=== PATIENT | female | born 1985 | race Caucasian/White ===

== ENCOUNTER 2017-04-18 15:29 | Emergency (ER) | payer MEDICAID ==
[2017-04-18 15:36] VITALS: BMI 25.6
[2017-04-18 15:40] VITALS: TEMP 98.8; O2SAT 100
[2017-04-18] MEDS ORDERED: Sodium Chloride 0.9% 1,000 ML IV STA (16:00)
--- NOTE | 2017-04-18 16:12 | ED PDOC ---
Arrival/HPI - General Chief Complaint: Dizziness/Lightheaded Time Seen by Provider: 04/18/17 15:35 Historian: Patient - History of Present Illness Narrative History of Present Illness (Text): 04/18/17 16:05 31yo female with no PMhx present with complaint of dizziness associated with nausea. The who was by the bedside notes that she had similar episode yesterday and then today, while in [place]. states she usually get these symptoms after her monthly periods. States her period usually last for 5days and heavy. Her last LMP was 2weeks ago. She described dizziness as "light headedness". Also reports headache. the states she usually wake up with headache every morning. States the headache usually resolves. states she had a cup of coffee today, but worried about what is causing her dizziness and have a headache as a result. she otherwise denies focal weakness, aphasia, visual changes, spinning sensation, dysathria, chest pain, SOB, diaphoresis, abdominal pain, recent travel, LE edema. Past Medical History - Provider Review Nursing Documentation Reviewed: Yes - Tetanus Immunization Tetanus Immunization: Unknown - Past Medical History Past Medical History: No Previous - Psychiatric Hx Depression: No Hx Emotional Abuse: No Hx Physical Abuse: No Hx Substance Use: No - Past Surgical History Past Surgical History: No Previous - Surgical History Hx Section: Yes - Anesthesia Hx Anesthesia: No - Suicidal Assessment Feels Threatened In Home Enviroment: No Family/Social History - Physician Review Nursing Documentation Reviewed: Yes Family/Social History: Unknown Family HX Smoking Status: Never Smoked Hx Alcohol Use: No Hx Substance Use: No Hx Substance Use Treatment: No Allergies/Home Meds Allergies/Adverse Reactions: Allergies krys Allergy (Intermediate, Uncoded 04/18/17 15:36) RASH strawberries Allergy (Intermediate, Uncoded 04/18/17 15:36) RASH Home Medications: Home Meds Medication Instructions Recorded Confirmed No Known Home Med 04/18/17 04/18/17 Review of Systems - Physician Review All systems were reviewed & negative as marked: Yes - Review of Systems Constitutional: Normal Eyes: Normal ENT: Normal Respiratory: Normal Cardiovascular: Normal Gastrointestinal: Normal Genitourinary Female: Normal Musculoskeletal: Normal Skin: Normal Neurological: Headache, Dizziness. absent: Focal Weakness, Gait Changes, Speech Changes, Facial Droop Endocrine: Normal Hemo/Lymphatic: Normal Psychiatric: Normal Physical Exam Vital Signs Reviewed: Yes Vital Signs Temp Pulse Resp BP Pulse Ox 04/18/17 16:52 71 18 115/75 100 04/18/17 15:39 98.8 F 76 17 117/79 100 Temperature: Afebrile Blood Pressure: Normal Pulse: Regular Respiratory Rate: Normal Appearance: Positive for: Well-Appearing, Non-Toxic, Comfortable Pain Distress: None Mental Status: Positive for: Alert and Oriented X 3 Finger Stick Blood Glucose: 113 - Systems Exam Head: Present: Atraumatic, Normocephalic Pupils: Present: PERRL Extroacular Muscles: Present: EOMI Conjunctiva: Present: Normal Mouth: Present: Moist Mucous Membranes Neck: Present: Normal Range of Motion Respiratory/Chest: Present: Clear to Auscultation, Good Air Exchange. No: Respiratory Distress, Accessory Muscle Use Cardiovascular: Present: Regular Rate and Rhythm, Normal S1, S2. No: Murmurs Abdomen: Present: Normal Bowel Sounds. No: Tenderness, Distention, Peritoneal Signs, Rebound, Guarding, McBurney's Point Tender, Rovsing's Sign Present Back: Present: Normal Inspection Upper Extremity: Present: Normal Inspection. No: Cyanosis, Edema Lower Extremity: Present: Normal Inspection. No: Edema Neurological: Present: GCS=15, CN II-XII Intact, Speech Normal, Motor Func Grossly Intact, Normal Sensory Function, Normal Cerebellar Funct, Norm Deep Tendon Reflexes, Gait Normal, Memory Normal, Normal 2Pt Descrimination, Other ( No focal neurological deficit) Skin: Present: Warm, Dry, Normal Color. No: Rashes Psychiatric: Present: Alert, Oriented x 3, Normal Insight, Normal Concentration Medical Decision Making ED Course and Treatment: 04/18/17 16:53 Pt was neurological intact and hemodynamically stable in ED. She was PERC negative. All lab was WNL. head CT was negative. Pt's symptom might be vasovagal Vs. viral syndrome. She denied elements of vertigo in ED. She was not orthostatic. All result was DW the pt. She is stable to be DC home and advised to f/u with a Neurology for outpt workup. - Lab Interpretations Lab Results: 04/18/17 16:30 04/18/17 16:30 Lab Results 04/18/17 16:30: PT 10.6, INR 0.98, APTT 27.8 04/18/17 16:30: Sodium 138, Potassium 3.9, Chloride 103, Carbon Dioxide 27, Anion Gap 12, BUN 11, Creatinine 0.7, Est GFR ( Amer) > 60, Est GFR (Non- Af Amer) > 60, Random Glucose 77, Calcium 9.2, Total Bilirubin 0.6, AST 24, ALT 26, Alkaline Phosphatase 58, Lactate Dehydrogenase 376, Total Creatine Kinase 72 , Troponin I < 0.01, Total Protein 8.3, Albumin 4.5, Globulin 3.8, Albumin/ Globulin Ratio 1.2 04/18/17 16:30: WBC 5.9 D, RBC 4.34, Hgb 12.0, Hct 35.8 L, MCV 82.5, MCH 27.6, MCHC 33.5, RDW 13.3, Plt Count 284, MPV 9.7, Gran % 54.6, Lymph % (Auto) 34.0, [place] % (Auto) 8.2 H, Eos % (Auto) 2.7, Baso % (Auto) 0.5, Gran # 3.21, Lymph # 2.0, [place]ke # 0.5, Eos # 0.2, Baso # 0.03 04/18/17 16:20: Urine Color Yellow, Urine Appearance Clear, Urine pH 6.0, Ur Specific [place] 1.025, Urine Protein Negative, Urine Glucose (UA) Negative, Urine Ketones Negative, Urine Blood Trace-lysed H, Urine Nitrate Negative, Urine Bilirubin Negative, Urine Urobilinogen 0.2, Ur Leukocyte Esterase Trace H , Urine RBC 0 - 2, Urine WBC 2 - 5, Ur Epithelial Cells 3 - 4, Urine Bacteria Few - RAD Interpretation Radiology Orders: 04/18/17 16:00 HEAD W/O CONTRAST [CT] Stat - Medication Orders Current Medication Orders: Discontinued Medications Acetaminophen (Tylenol 325mg Tab) 650 mg PO STAT STA Stop: 04/18/17 16:01 Last Admin: 04/18/17 16:12 Dose: 650 mg Sodium Chloride (Sodium Chloride 0.9%) 1,000 mls @ 999 mls/hr IV .Q1H1M STA Stop: 04/18/17 17:00 Last Admin: 04/18/17 16:13 Dose: 999 mls/hr Disposition/Present on Arrival - Present on Arrival Any Indicators Present on Arrival: No History of DVT/PE: No History of Uncontrolled Diabetes: No Urinary Catheter: No History of Decub. Ulcer: No History Surgical Site Infection Following: None - Disposition Have Diagnosis and Disposition been Completed?: Yes Diagnosis: Dizziness Disposition: HOME/ ROUTINE Disposition Time: 17:05 Patient Plan: Discharge Patient Problems: Current Active Problems Problem Status Onset Dizziness Acute Condition: STABLE Discharge Instructions (ExitCare): Dizziness (ED) Additional Instructions: Follow up with a Neurologist Return to ED for any new or worsening symptoms Referrals: Andrey Cruz MD [Primary Care Provider] - Follow up with primary Ángel Garcia MD [Staff Provider] - Follow up with primary
[2017-04-18 16:33] LABS: ADD MANUAL DIFF? NO
[2017-04-18 16:36] LABS: URINE BILIRUBIN NEGATIVE (NEGATIVE); URINE BLOOD TRACE-LYSED (NEGATIVE); URINE GLUCOSE (UA) NEGATIVE (NEGATIVE); URINE KETONE NEGATIVE (NEGATIVE); URINE LEUKOCYTE ESTERASE TRACE Leu/uL (NEGATIVE); URINE PROTEIN NEGATIVE mg/dL (<30 mg/dL); URINE UROBILINOGEN 0.2 E.U./dL (<1 E.U./dL)
[2017-04-18 16:38] LABS: BASO # 0.03 K/mm3 (0.0-2.0); BASO % 0.5 % (0.0-3.0); EOS # 0.2 (0.0-0.7); EOS % 2.7 % (1.5-5.0); GRAN # 3.21 (1.4-6.5); GRAN % 54.6 % (50.0-68.0); HEMATOCRIT 35.8 % (36.0-48.0); MEAN CELL VOLUME 82.5 fL (80.0-105.0); MEAN CORPUSCULAR HEMOGLOBIN 27.6 pg (25.0-35.0); MEAN CORPUSCULAR HGB CONC 33.5 g/dl (31.0-37.0); MEAN PLATELET VOLUME 9.7 fl (7.0-11.0); MONO # 0.5 (0.1-0.6); MONO % 8.2 % (1.0-6.0); PLATELET COUNT 284 10^3/uL (120.0-450.0); RED CELL DISTRIBUTION WIDTH 13.3 % (11.5-14.5); WHITE BLOOD COUNT 5.9 10^3/ul (4.5-11.0)
[2017-04-18 16:41] LABS: URINE APPEARANCE CLEAR (CLEAR); URINE COLOR YELLOW (YELLOW)
[2017-04-18 16:47] LABS: ALB/GLOB RATIO 1.2 (1.1-1.8); ALKALINE PHOSPHATASE 58 U/L (38-133); ALT/SGPT 26 U/L (7-56); AST/SGOT 24 U/L (15-39); BILIRUBIN,TOTAL 0.6 mg/dL (0.2-1.3); BLOOD UREA NITROGEN 11 mg/dL (7-21); CALCIUM 9.2 mg/dL (8.4-10.5); CARBON DIOXIDE 27 mmol/L (21-33); CHLORIDE 103 mmol/L (98-107); GFR AFRICAN-AMERICAN > 60; GLUCOSE,RANDOM 77 mg/dL (70-110); POTASSIUM 3.9 mmol/L (3.6-5.0); SODIUM 138 mmol/L (132-148); TOTAL PROTEIN 8.3 g/dL (5.8-8.3)
--- NOTE | 2017-04-18 16:47 | CT ---
PROCEDURE: CT HEAD WITHOUT CONTRAST. HISTORY: Dizziness, vomiting and headache COMPARISON: None available. TECHNIQUE: Axial computed tomography images were obtained through the head/brain without intravenous contrast. Radiation dose: Total exam DLP = mGy-cm. This CT exam was performed using one or more of the following dose reduction techniques: Automated exposure control, adjustment of the mA and/or kV according to patient size, and/or use of iterative reconstruction technique. FINDINGS: HEMORRHAGE: No intracranial hemorrhage. BRAIN: No mass effect or edema. No atrophy or chronic microvascular ischemic changes. VENTRICLES: Unremarkable. No hydrocephalus. CALVARIUM: Unremarkable. PARANASAL SINUSES: Incompletely visualize left maxillary sinusitis techUnremarkable as visualized. No significant inflammatory changes. MASTOID AIR CELLS: Unremarkable as visualized. No inflammatory changes. OTHER FINDINGS: None. IMPRESSION: No acute intracranial abnormalities. No significant findings to account for the clinical presentation.
[2017-04-18 16:49] LABS: INR 0.98 (0.93-1.08); PARTIAL THROMBOPLASTIN TIME 27.8 Seconds (23.7-30.8)
[2017-04-18 16:53] VITALS: BP 115/75; PULSE 71; RESP 18
[2017-04-18 16:54] LABS: URINE BACTERIA FEW (NEG); URINE RBC 0 - 2 /hpf (0-2)
[2017-04-18 17:00] LABS: TROPONIN I < 0.01 ng/mL
== END 2017-04-18 17:39 | disposition home or self-care (01) ==
LOC: ED 15:29
DX: R42 Dizziness and giddiness (principal)
CPT/HCPCS: 70450; 80053; 81001; 82550; 83615; 84484; 85025; 85610; 85730; 87086; 99285; J7040